=== PATIENT | male | born 1970 ===

== ENCOUNTER 2021-01-23 11:55 | Day surgery (SDC) | payer OTHER | END 2021-01-23 16:00 | disposition home or self-care (01) | LOC: AMB-ENDOS 11:55 | PROVIDERS: ATTEND Colon & Rectal Surgery | DX: D12.8 Benign neoplasm of rectum (principal); K64.1 Second degree hemorrhoids; Z20.822 Contact with and (suspected) exposure to COVID-19 ==

== ENCOUNTER 2021-02-25 07:27 | Day surgery (SDC) | payer OTHER ==
[~2021-02-25 07:27] MED LIST: CARDESARTAN PO; FORTAMET500 MG PO
== END 2021-02-25 18:30 | disposition home or self-care (01) ==
LOC: CIR.AMB 07:27
PROVIDERS: ATTEND Colon & Rectal Surgery
DX: K60.1 Chronic anal fissure (principal); K64.4 Residual hemorrhoidal skin tags; Z20.822 Contact with and (suspected) exposure to COVID-19